=== PATIENT | female | born 1955 | race Caucasian/White ===

== ENCOUNTER 2020-10-29 11:37 | Emergency (ER) | payer BC, OTHER ==
[2020-10-29 12:12] VITALS: BP 118/79; PULSE 89; TEMP 98.5; BMI 25.9
== END 2020-10-29 13:12 | disposition home or self-care (01) ==
LOC: JER 11:37
DX: J02.9 Acute pharyngitis, unspecified (principal); Z20.822 Contact with and (suspected) exposure to COVID-19
CPT/HCPCS: 99283-25; C9803; U0003; U0005

== ENCOUNTER 2020-11-08 18:30 | Emergency (ER) | payer BC ==
[2020-11-08 18:39] VITALS: BMI 27.3
[2020-11-08] MEDS ORDERED: BAMLANIVIMAB 700 MG, ETESEVIMAB 1,400 MG in SODIUM CHLORIDE 250 ML IVPB ONE (19:28)
[2020-11-08 21:10] LABS: HEMATOCRIT 45.6 % (32.4-45.2); HEMOGLOBIN 14.9 GM/dL (10.7-15.3); MCHC 32.7 g/dl (32.0-36.0); MEAN CELL VOLUME 97.8 fl (80-96); MEAN PLT VOLUME 8.3 fl (7.5-11.1); PLATELET COUNT 124 K/MM3 (134-434); RBC 4.67 M/mm3 (3.60-5.2); RDW 14.6 % (11.6-15.6)
[2020-11-08 21:17] LABS: POTASSIUM 3.5 mmol/L (3.5-5.1)
[2020-11-08 21:19] LABS: BLOOD UREA NITROGEN 11.8 mg/dL (7-18)
[2020-11-08 21:22] LABS: CREATININE 0.8 mg/dL (0.55-1.3)
[2020-11-08] MEDS ORDERED: FAMOTIDINE 20 MG/50 ML IVPB 20 MG/50 ML MG IVPB ONE ×2 (21:40→21:53)
[2020-11-08] MEDS ORDERED: methylPREDNISolone NA SUCC 125 MG/2 ML VIAL ONE (21:40)
[2020-11-08] MEDS ORDERED: methylPREDNISolone NA SUCC 125 MG/2 ML VIAL IVPUSH ONE (21:53)
[2020-11-08 23:28] VITALS: BP 120/72; PULSE 80; TEMP 98.6
== END 2020-11-08 23:40 | disposition home or self-care (01) ==
LOC: JER 18:30
PROC: 3E033GC Introduction of Other Therapeutic Substance into Peripheral Vein, Percutaneous Approach (ICD-10-PCS; principal; 2020-11-08)
DX: U07.1 COVID-19 (principal)
CPT/HCPCS: 36415; 80048; 85027; 99284-25; M0239; Q0239; Q0245